=== PATIENT | male | born 2000 | race Caucasian/White ===

== ENCOUNTER → 2021-04-29 15:10 | Outpatient (BNVA) | payer OTHER, SELFPAY | PROVIDERS: Family Provider Nurse Practitioner Family; PCP Nurse Practitioner Family; Visit Provider Nurse Practitioner Family | DX: S69.92XA Unspecified injury of left wrist, hand and finger(s), initial encounter (principal); V89.2XXA Person injured in unspecified motor-vehicle accident, traffic, initial encounter | CPT/HCPCS: 73110 ==

== ENCOUNTER → 2021-05-01 10:20 | Outpatient (BNVA) | payer OTHER, SELFPAY | PROVIDERS: Family Provider Nurse Practitioner Family; PCP Nurse Practitioner Family; Visit Provider Nurse Practitioner | DX: S69.92XA Unspecified injury of left wrist, hand and finger(s), initial encounter (principal); X58.XXXA Exposure to other specified factors, initial encounter | CPT/HCPCS: 73110 ==

== ENCOUNTER 2025-04-08 11:06 | Emergency (ER) | payer OTHER, SELFPAY ==
[2025-04-08 11:12] VITALS: BP 152/81; PULSE 66; RESP 18; TEMP 36.5; O2SAT 99; BMI 27.8
--- NOTE | 2025-04-08 11:45 | XRR_ITS ---
PROCEDURE INFORMATION: Exam: XR Right Hand Exam date and time: 04/08/2025 11:53 AM Age: 24 years old Clinical indication: Injury or trauma; Other: Utility knife cut; Laceration; Right; Ring finger; Injury details: HX of previous injury to distal phalange of same finger TECHNIQUE: Imaging protocol: Radiologic exam of the right hand. Views: 3 or more views. COMPARISON: No relevant prior studies available. FINDINGS: Bones/joints: Normal. Soft tissues: Soft tissue swelling in the distal 4th digit along the volar aspect.. XR/XR hand RT min 3V* [id number] IMPRESSION: No acute osseous findings.
--- NOTE | 2025-04-08 11:49 | W.ED.WOUNDLC ---
HPI - Wound/Laceration General: Chief Complaint: Wound/Laceration Stated Complaint: right hand - ring finger injury Time Seen by Provider: 04/08/25 11:34 History of Present Illness: 24-year-old male was working at home sustaining injury when he reached across the work area and cut his finger on an open blade that was laying down. He has a laceration to the tip of the right index finger. Was bleeding at home is no longer bleeding now his tetanus is up-to-date. Related Data Previous Rx's ?Medication ?Instructions ?Recorded cephalexin 750 mg capsule 750 mg PO BID #10 caps 04/08/25 mupirocin 2 % topical ointment 1 applic topical DAILY #15 grams 04/08/25 (Centany) Allergies Allergy/AdvReac Type Severity Reaction Status Date / Time No Known Allergies Allergy Unverified 04/29/21 14:45 [facility] ED PFSH: Medical History (Updated 04/08/25 @ 12:57 by Josias Ramsay DO) Horseshoe kidney Surgical History (Updated 05/01/21 @ 10:12 by PAOLA Villalta) History of wisdom tooth extraction History of tonsillectomy Family History Denies family history of Diabetes Dementia Chronic kidney disease (CKD) Lung disease Cancer Hypertension Stroke Social History Smoking and tobacco/nicotine status: light tobacco/nicotine user smokeless tobacco Second hand smoke exposure: No Alcohol intake: current Alcohol intake frequency: holidays/special occasions only Substance/Drug Use: unknown Adopted: Yes Caregiver/support person: No Lives independently: Yes Household members: friend(s) Housing: House Marital status: Single Number of children: 0 Highest education level completed: GED or Equivalent service: Yes status: Medically Discharged/Retired branch: [employer] Current occupational status: employed Current occupation: [employer] Pets and animals: Yes Pets & animals: dog(s) Do you think of yourself as: Straight/Heterosexual Current gender identity: Male Physical Exam Const: COMMON NORMALS: no acute distress GENERAL APPEARANCE: cooperative and comfortable ORIENTATION/CONSCIOUSNESS: Yes awake, Yes oriented to person, Yes oriented to place and Yes oriented to time HENMT: COMMON NORMALS: normocephalic, atraumatic and hearing grossly normal bilaterally HEAD & SCALP: normocephalic and atraumatic Resp: COMMON NORMALS: normal respiratory effort, No retractions, No use of accessory muscles and clear to auscultation bilaterally AUSCULTATION: clear to auscultation bilaterally Cardio: COMMON NORMALS: regular rate, regular rhythm and No murmurs present (Cardio) RATE: regular rate RHYTHM: regular rhythm Extremity: COMMON NORMALS: normal to inspection, capillary refill normal, no clubbing, cyanosis or edema, no calf tenderness and no pedal edema OTHER: Patient is a avulsion flap-like laceration of the fingertip with the apex being at the distal portion of the fourth finger on the right hand. No active bleeding sensation normal no involvement of flexor tendons noted patient able to flex difficulty. Decreased sensation in the apex of the flap. Neuro: SENSORIUM/ORIENTATION: Yes oriented to person, Yes oriented to place and Yes oriented to time Skin: COMMON NORMALS: no rashes or lesions noted GENERAL SKIN EXAM: no rashes or lesions noted Procedures Laceration Laceration 1: Site: hand (Right fourth finger) Side (If applicable): right Size (cm): 4 Description: flap Depth: simple, single layer Pre-repair: irrigated extensively Skin layer closed with: nylon Size (cm): 5-0 Technique: simple, interrupted (1 at the apex) and running (Single running suture to close the remainder) Nerve Block Nerve Block 1: Time out performed: Yes Local Anesthetic: lidocaine 1% Amount of anesthesia used (mL): 4 Side: right Nerve Blocks: digital (Right fourth finger) Patient Tolerated Procedure: well Complications: none Course Vital Signs: Vital signs: Vital Signs Temperature 97.7 F 04/08/25 11:12 Pulse Rate 51 L 04/08/25 13:19 Respiratory Rate 18 04/08/25 11:12 Blood Pressure 126/55 04/08/25 13:19 Pulse Oximetry 97 04/08/25 13:19 Oxygen Delivery Me thod Room Air 04/08/25 12:00 MDM - Wound/Laceration Medical Decision Making Digital nerve block patient tolerated procedure well he did have a vasovagal episode shortly after he did the digital nerve block and recovered without any problems he is given a liter of fluids he is feeling much better wound care instructions given sutures out in 7 to 10 days. Started on Keflex 750 twice daily for 5 days. Lab Data Radiology Impressions Hand X-Ray 04/08/25 11:45 IMPRESSION: No acute osseous findings. All radiology interpretation(s) finalized by discharge Discharge Plan Discharge Patient Disposition: Home Clinical Impression: Laceration Condition: Stable Prescriptions: New cephalexin 750 mg capsule 750 mg PO BID Qty: 10 0RF mupirocin [Centany] 2 % ointment 1 applic topical DAILY Qty: 15 0RF Discharge Orders: Discharge ED (Routine); Ordered 04/08/25 Ordered By: Josias Ramsay Discharge Diet: Usual diet Discharge Activity: Increase activity as tolerated Patient Instructions: Opioid Safety, Pain Management Activity Restrictions/Additional Instructions: Thank you for choosing [facility] for your healthcare needs today. It is very important that you follow up as instructed or that you return to the Emergency Department should you have concerns or if your condition changes or worsens in any way. You were seen in the emergency room after a laceration to your finger. He had a vasovagal reaction while we were repairing the laceration we gave you a liter of fluids. He advises that you tetanus was up-to-date so we did not repeat it. The laceration was closed with sutures that should be removed in 7 to 10 days. Apply topical antibiotic ointment to the wound once daily keep covered while you are active. Oral antibiotics 1 pill twice a day for 5 days if there is redness drainage or signs of infection return to the emergency room Print Language: Bulgarian Coding Level of Care Code ED Bacteriologist Dairy for Le[facility] [place]
[2025-04-08 12:00] VITALS: BP 127/72; PULSE 67; O2SAT 96
[2025-04-08] MEDS: lidocaine 1% 10 ML INJ IM (13:00)
[2025-04-08] MEDS: sodium chloride 0.9% 1,000 ML 999 ML IV (13:01)
[2025-04-08 13:19] VITALS: BP 126/55; PULSE 51; O2SAT 97
[2025-04-08 14:33] VITALS: BP 108/79; PULSE 56; O2SAT 99
== END 2025-04-08 14:34 | disposition home or self-care (01) ==
PROVIDERS: Emergency Provider Family Medicine
DX: S61.214A Laceration without foreign body of right ring finger without damage to nail, initial encounter (principal); X58.XXXA Exposure to other specified factors, initial encounter; Z72.0 Tobacco use
CPT/HCPCS: 12002; 73130; 96360; 96361; 99284; J7030; J9999